=== PATIENT | female | born 1950 | race Caucasian/White ===

== ENCOUNTER 2024-04-08 12:24 | Emergency (ER) | payer MEDICARE, OTHER ==
[2024-04-08 12:41] LABS: APPEARANCE,URINE SLIGHTLY CLOUDY (CLEAR); BILIRUBIN,URINE NEGATIVE (NEGATIVE); COLOR,URINE YELLOW (YELLOW); GLUCOSE,URINE NEGATIVE (NEGATIVE); KETONES,URINE NEGATIVE (NEGATIVE); LEUKOCYTE ESTERASE,URINE SMALL (NEGATIVE); NITRITE,URINE NEGATIVE (NEGATIVE); OCCULT BLOOD,URINE LARGE (NEGATIVE); PH,URINE 6.5 (5.0-9.0); PROTEIN,URINE TRACE (NEGATIVE); UROBILINOGEN,URINE 0.2 mg/dL (0.2-1.0)
[2024-04-08 12:50] LABS: EPITHELIAL CELLS,URINE FEW /HPF (NOT SEEN); WBC,URINE 40-50 /HPF (0-5/HPF)
[2024-04-08 12:51] LABS: BACTERIA,URINE MODERATE /HPF (0-FEW/HPF)
[2024-04-08] MEDS: Take Home: Sulfamethoxazole/Trimethoprim 800-160 MG Tab, 6 Tab Pack PO ONE (13:03)
== END 2024-04-08 13:06 | disposition home or self-care (01) ==
LOC: DL.ED 12:24
DX: N39.0 Urinary tract infection, site not specified (principal)
CPT/HCPCS: 81001; 87086; 99283; A9270